=== PATIENT | female | born 1960 | race Two or more races ===

== ENCOUNTER 2019-01-07 14:22 | Emergency (ER) | payer MEDICAID ==
[~2019-01-07] VITALS: Ht 157.5 cm; Wt 51.0 kg
--- NOTE | 2019-01-07 14:56 | NUR ---
ANANDA IN HOSPITAL BED. IS PREFFERED [employer] MEMBER. CALL LIGHT WITHIN REACH. AWAITING DOCTOR.
[2019-01-07 14:57] VITALS: BP 133/76
[2019-01-07] MEDS ORDERED: ACETAMINOPHEN 500 MG TABLET ONE (15:06)
[2019-01-07 15:29] LABS: CULTURE INDICATED? YES; MICROSCOPIC INDICATED
[2019-01-07] MEDS ORDERED: ACETAMINOPHEN 500 MG TABLET PO ONE (15:30)
[2019-01-07 15:34] LABS: RAPID INFLUENZA A POSITIVE (Negative); RAPID INFLUENZA B Negative (Negative)
== END 2019-01-07 16:13 ==
LOC: ED 15:55
DX: J10.1 Influenza due to other identified influenza virus with other respiratory manifestations (principal); J20.8 Acute bronchitis due to other specified organisms; N39.0 Urinary tract infection, site not specified
CPT/HCPCS: 71045; 81001; 87086; 87400; 93005; 99284